=== PATIENT | female | born 1960 | race Caucasian/White ===

== ENCOUNTER 2017-01-16 00:10 | Emergency (ER) | payer OTHER ==
[~2017-01-16] VITALS: Ht 162.6 cm; Wt 103.9 kg
[~2017-01-16 00:10] MED LIST: ALBU0.0912 IH; AMOX-999 PO; DICL-388 PO; LEVO500T6 PO; PRED20TA5 PO
[2017-01-16 00:13] VITALS: BP 140/89
--- NOTE | 2017-01-16 00:44 | NUR ---
PT TAKEN TO BED 6
--- NOTE | 2017-01-16 00:52 | NUR ---
Dr. Figueroa evaluating patient at bedside.
--- NOTE | 2017-01-16 01:05 | NUR ---
56Y/F PT. PRESENTS TO ED WITH C/O ABDOMINAL PAIN X 2 DAYS. PT. DENIES N/V/D NOR FEVER. AAO X4, AMBULATORY WITH STEADY GAIT. RESPIRATIONS ROOM AIR, EVEN AND UNLABORED. ABDOMEN SOFT AND NON-TENDER, HYPOACTIVE BS X4. C/O PAIN 8/10. VSS, ER MD MADE AWARE OF PT. STATUS.
--- NOTE | 2017-01-16 01:15 | NUR ---
PT RETURN FROM XRAY
--- NOTE | 2017-01-16 01:20 | NUR ---
Patient discharged with v/s stable. Written and verbal after care instructions given and explained. Patient alert, oriented and verbalized understanding of instructions. Ambulatory with to car. All questions addressed prior to discharge. ID band removed. Patient advised to follow up with PMD. Rx of LACTULOSE 10GM/5ML, TRAMADOL 50 MG, MAGNESIUM CITRATE LOW NA SOLUTION 300 ML given. Patient educated on indication of medication including possible reaction and side effects. Opportunity to ask questions provided and answered.
[2017-01-16 01:45] VITALS: BP 135/85
--- NOTE | 2017-01-17 11:07 | NUR ---
ADDENDUM: AL ALMENDAREZ CRUGER CALLED RESULT ABD.SERIES DONE TO PATIENT. SHOWED TO DR. SCHNEIDER. NO FARTHER TREATMENT NEEDED PER DR. SCHNEIDER
== END 2017-01-16 01:20 | disposition home or self-care (01) ==
LOC: MED 00:10
DX: K59.00 Constipation, unspecified (principal); R03.0 Elevated blood-pressure reading, without diagnosis of hypertension
CPT/HCPCS: 74022; 99284

== ENCOUNTER 2018-06-10 20:54 | Emergency (ER) | payer OTHER ==
[~2018-06-10] VITALS: Ht 162.6 cm; Wt 136.1 kg
[2018-06-10 20:55] VITALS: BP 169/72
--- NOTE | 2018-06-10 21:01 | NUR ---
PT AMBULATORY TO ER LOBBY W/ STEADY GAIT IN STABLE CONDITION.
--- NOTE | 2018-06-10 21:50 | NUR ---
PT TAKEN TO BED 7
--- NOTE | 2018-06-10 21:56 | NUR ---
PT BIB SELF FOR BODY PAIN X2 MONTHS. PT REPORTS DEGENERATIVE ARTHRITIS FOR YEARS BUT STATES THE PAIN HAS BECOME UNBEARABLE THE PAST 2 MONTHS. PT STATES UNBEARABLE PAIN AT 10/10 OVER HER HOLE BODY THAT INCREASES WITH MOVEMENT. PT REPORTS THAT SHE HAS RAN OUT OF HER MEDICATION, PT IS UNABLE TO STATE THE NAME OF THE MEDICATION AT THIS TIME. VSS. TIMOTHY PATTON TO SEE PT. SAFETY PRECAUTIONS IN PLACE, WILL CONTINUE TO MONITOR.
--- NOTE | 2018-06-11 01:13 | NUR ---
Dr. Brasher evaluating patient at bedside.
[2018-06-11] MEDS ORDERED: KETOROLAC 60 MG/2 ML VIAL IM ONE (01:20)
[2018-06-11 02:27] VITALS: BP 169/72
--- NOTE | 2018-06-11 02:27 | NUR ---
PT left without discharge instructions, PT did not sign discharge paperwork. PT Ambulatory with steady gait.
== END 2018-06-11 02:27 | disposition home or self-care (01) ==
LOC: MED 20:54
DX: M79.18 Myalgia, other site (principal); M54.2 Cervicalgia; M54.6 Pain in thoracic spine; M25.512 Pain in left shoulder; M25.511 Pain in right shoulder; Z79.2 Long term (current) use of antibiotics; Z79.1 Long term (current) use of non-steroidal anti-inflammatories (NSAID); Z79.899 Other long term (current) drug therapy
CPT/HCPCS: 96372; 99283; J1885